=== PATIENT | female | born 1990 | race Caucasian/White ===

== ENCOUNTER 2022-05-15 19:51 | Emergency (ER) | payer MEDICAID ==
[~2022-05-15] VITALS: Ht 152.4 cm; Wt 81.8 kg
[2022-05-15] MEDS ORDERED: HYDROcodone-ACET 5/325MG TAB PO ONE (20:15)
[2022-05-15 22:00] LABS: Urine Bacteria FEW /hpf (None Seen); Urine Blood Negative /uL (Negative); Urine Specific Gravity 1.017 (1.001-1.035); Urine WBC 53 /hpf (0 - 5)
[2022-05-15] MEDS ORDERED: IBUP800T26 PO (22:22)
[2022-05-15] MEDS ORDERED: LEVO750T8 PO (22:22)
[2022-05-15] MEDS ORDERED: ACET-1158 PO (22:22)
[2022-05-15] MEDS ORDERED: levoFLOXacin 250 MG TAB PO ONE (22:30)
[2022-05-16 00:36] VITALS: BP 144/100
== END 2022-05-16 00:39 | disposition home or self-care (01) ==
LOC: ER 19:51
DX: N12 Tubulo-interstitial nephritis, not specified as acute or chronic (principal)
CPT/HCPCS: 72070; 81001; 87086; 87088; 87186